=== PATIENT | female | born 1990 | race Caucasian/White ===

== ENCOUNTER 2016-06-17 17:24 | Emergency (ER) | payer OTHER ==
[~2016-06-17 17:24] MED LIST: MOTRIN-DPS800 MG PO; NEWMANS NIPPLE CREAM TP; PRENATAL VIT1 TAB PO; TYLENOL #3 DPS1 TAB PO
--- NOTE | 2016-06-23 21:34 | ER ---
ADMIT: 06/17/2016 RM/LOC: ER [facility] MR#: [id number] [id number] [place], [place] [address] CONRADO SULLIVAN [address] [place] [phone] Emergency Room Report SEX: F AGE: 25 : 1990 DATE: 06/17/2016 ADDENDUM: This patient comes into the ER because an hour ago, she started noticing some vaginal bleeding. According to her last menstrual period, she is 4-5 weeks . She has a cramping-type pain right above her pubic symphysis, no guarding. This is her third time being . She has two live children. On physical exam, her abdomen is slightly tender above the pubic symphysis. She has a small amount of blood in the vagina and the cervix is closed. Her Rh was positive. Her beta quant was 11,984. Ultrasound showed a 6-week IUP. No heart tones noted. Recent versus demise. She is to follow up with Dr. Matt on Saturday to recheck her beta quant. Please see my T-sheet. WALTER Briseno / Angel Romero MD / lital JOB #: [id number] CC: Angel Romero MD, Attending Physician Shahab Matt MD, Family Physician
== END 2016-06-17 20:15 | disposition home or self-care (01) ==
LOC: ER 17:24
DX: O20.8 Other hemorrhage in early pregnancy (principal); Z3A.01 Less than 8 weeks gestation of pregnancy; Z88.0 Allergy status to penicillin

== ENCOUNTER 2016-06-20 09:16 | Emergency (ER) | payer OTHER, MEDICAID ==
--- NOTE | 2016-06-23 18:24 | ER ---
ADMIT: 06/20/2016 RM/LOC: ER [facility] MR#: [id number] [address] [place], [place] [address] LAURIECONRADO Yael [address] [place] [id number] Emergency Room Report SEX: F AGE: 25 : 1990 DATE: 06/20/2016 HISTORY OF PRESENT ILLNESS: The patient is a 25-year-old female complaining of one hour of bleeding. She is 6 weeks' but in reality, looking back to her chart, she was in the emergency room on 06/17/2016, you failed to indicate that to us when we asked previous issues with cramping or bleeding. She did report having some chills yesterday. She went to [facility] where she had an ultrasound, so she has had now two ultrasounds in less than four days. She is 3, para 2, zero. She is O positive. She denies any other issues. No dizziness. No nausea or vomiting. ALLERGIES: PENICILLIN. MEDICATIONS: Multivitamin. PHYSICAL EXAMINATION: She is tender in lower abdomen in the suprapubic area. Mild to moderately anxious. at bedside. He seems to be frustrated, wants answers why she is bleeding. Apparently, he is not getting the answers that they are looking for either by visiting her OB [facility] and the ER twice in a week. Ultrasound reviewed from 06/17/2016, states early appearing intrauterine with intrauterine gestational sac, small pole, sonographic gestational age of 6 weeks 2 days. Her beta HCG three days ago was 11,000, today is 10,000. She says she has an appointment tomorrow with someone at [facility] as well and she is encouraged to continue her multivitamin, follow up with them. We did do a UA on her which shows leukocytes trace and protein trace. No signs of an infection at this point. Discharge instructions were given. Follow up with Dr. Matt. CLINICAL IMPRESSION: Early gestational versus threatened . WALTER Singleton / Nghia Thibodeaux MD / denzel JOB #: [id number] CC: Nghia Thibodeaux MD, Attending Physician Lucio Mcdaniel MD, Family Physician
== END 2016-06-20 11:27 | disposition home or self-care (01) ==
LOC: ER 09:16
DX: O20.9 Hemorrhage in early pregnancy, unspecified (principal); Z88.0 Allergy status to penicillin

== ENCOUNTER 2016-08-06 20:21 | Emergency (ER) | payer OTHER, MEDICAID ==
--- NOTE | 2016-08-07 07:20 | ER ---
ADMIT: 08/06/2016 RM/LOC: ER [facility] MR#: [id number] [address] [address] LAURIESHOSteven Conley [address] [place] [address] Emergency Room Report SEX: F AGE: 25 : 1990 DATE: 08/06/2016 The patient is a 25-year-old female, complaining of 2-month history since delivering her child of milk intolerance associated with right upper quadrant and shoulder pain, nausea, anorexia. Denies any vomiting, fevers, or chills. Exam remarkable for nontoxic, afebrile female, exquisitely tender right upper quadrant. GI cocktail caused no improvement. The patient was given IV fluids, Zofran, Toradol, Dilaudid, Protonix with relief. CT abdomen and pelvis, negative. Set up with ultrasound of right upper quadrant to be followed by HIDA scan if negative ordered by Dr. Lissett Yanes. Hydrocodone 5/325 mg, #20 plus #6 as needed. Low-fat, low-protein diet. Tae Flores MD/ denzel JOB #: [id number] CC: Tae Flores MD, Attending Physician Lissett Yanes, Family Physician
== END 2016-08-06 23:40 | disposition home or self-care (01) ==
LOC: ER 20:21
DX: K80.50 Calculus of bile duct without cholangitis or cholecystitis without obstruction (principal); Z88.0 Allergy status to penicillin

== ENCOUNTER → 2016-08-08 | Outpatient (CLI) | payer MEDICAID | END | disposition home or self-care (01) | LOC: RAD.S 09:53 | DX: R10.11 Right upper quadrant pain (principal); K80.50 Calculus of bile duct without cholangitis or cholecystitis without obstruction; K76.0 Fatty (change of) liver, not elsewhere classified ==

== ENCOUNTER 2016-08-13 22:01 | Emergency (ER) | payer OTHER, MEDICAID ==
--- NOTE | 2016-08-14 06:26 | ER ---
ADMIT: 08/13/2016 RM/LOC: ER [facility] MR#: [id number] [address] [address] LAURIE CONRADO A [address] [place] [address] Emergency Room Report SEX: F AGE: 25 : 1990 DATE: 08/13/2016 The patient is a 25-year-old female, complaining of sore throat for the past 2 days. Concerned she may have oral cancer. Employed at the [employer] Does not chew tobacco or smoke. Exam remarkable for nontoxic, afebrile female with lateral lingual nontender aphthous type sores. No evidence of petechiae or soft palate or uvula. Strep screen negative. Culture pending. Reassured the patient that this is not oral cancer. Follow up dentist as scheduled this next month. Work release for tomorrow and follow up Dr. Lissett Yanes as needed. Tae Flores MD/ denzel JOB #: [id number] CC: Tae Flores MD, Attending Physician Lissett Yanes, Family Physician
== END 2016-08-13 23:20 | disposition home or self-care (01) ==
LOC: ER 22:01
DX: J02.9 Acute pharyngitis, unspecified (principal); K12.1 Other forms of stomatitis; Z88.0 Allergy status to penicillin

== ENCOUNTER 2016-11-05 16:00 | Emergency (ER) | payer MEDICAID | END 2016-11-05 17:34 | disposition home or self-care (01) | DX: R10.9 Unspecified abdominal pain (principal); R31.9 Hematuria, unspecified; Z88.0 Allergy status to penicillin ==

== ENCOUNTER 2016-11-06 20:09 | Emergency (ER) | payer MEDICAID ==
--- NOTE | 2016-11-07 14:46 | ER ---
ADMIT: 11/06/2016 RM/LOC: ER [facility] MR#: [id number] [address] [place], [place] [address] CONRADO SULLIVAN [address] [place] [address] Emergency Room Report SEX: F AGE: 25 : 1990 DATE: 11/06/2016 HISTORY OF PRESENT ILLNESS: The patient is a 25-year-old female presents to emergency room for the second time within 24 hours complaining of right upper quadrant abdominal pain. She says her pain is sharp. She also points to the right and left lower abdomen. ALLERGIES: SHE IS ALLERGIC TO PENICILLIN. MEDICATIONS: Takes no medications on a regular basis. PHYSICAL EXAMINATION: VITAL SIGNS: Blood pressure is 121/87, heart rate is 90, respirations 16. She is afebrile. ABDOMEN: She got tenderness in the aforementioned right upper quadrant and left lower and right lower quadrant. NEUROLOGIC: Intact. CLINICAL IMPRESSION: Fatty liver, elevated liver enzymes, suspect pancreatitis. Ultrasound of the gallbladder shows fatty liver, AST 295, alkaline phosphatase 179, ALT 556. Hemoglobin is 10.4. She has amorphous crystals, moderate in the urine, rbc's 9, blood 2+, urobilinogen 1. The patient discharged home. We do have a panel pending for hepatitis. She will be following up with her primary provider within 24 to 48 hours. She will receive Percocet for pain control. WALTER Singleton / Jaswant Downing MD / modl JOB #: [id number] CC: Jaswant Downing MD, Attending Physician Lissett Yanes, Family Physician
== END 2016-11-07 01:45 | disposition home or self-care (01) ==
LOC: ER 20:09
DX: K76.0 Fatty (change of) liver, not elsewhere classified (principal); Z88.0 Allergy status to penicillin